=== PATIENT | female | born 1970 | race Caucasian/White ===

== ENCOUNTER → 2018-08-23 | Outpatient (CLI) | payer BC ==
[~2018-08-23] MED LIST: ACETAMINOPHEN325 M1; BENTYL20 MG; CIPROFLOXACIN500 M1 PO; CIPROFLOXACIN500 M3 PO; FLEXERIL PO; HYDROCODON-ACE1 EAC7 PO; IBUPROFEN; IBUPROFEN 400400 M1; MULTIVITAMIN; MULTIVITAMINS; NEURONTIN 300300 M1 PO; NORCO 5-325 TA1 EACH PO; PHENERGAN 25 MG25 M1; TRAMADOL 50 MG50 MG PO; ZORVOLEX35 MG PO
== END ==
LOC: M.CT 09:35
DX: M54.5 Low back pain (principal); N39.0 Urinary tract infection, site not specified; R31.9 Hematuria, unspecified; Z98.890 Other specified postprocedural states

== ENCOUNTER → 2020-09-24 | Outpatient (CLI) | payer BC | LOC: M.MRI 07:24 | PROVIDERS: ATTEND Family Medicine | DX: S46.811A Strain of other muscles, fascia and tendons at shoulder and upper arm level, right arm, initial encounter (principal); M25.511 Pain in right shoulder; M77.8 Other enthesopathies, not elsewhere classified; X58.XXXA Exposure to other specified factors, initial encounter; Y93.89 Activity, other specified; Y92.89 Other specified places as the place of occurrence of the external cause; Y99.8 Other external cause status ==